=== PATIENT | female | born 1930 | race Caucasian/White ===

== ENCOUNTER 2016-09-15 00:17 | Emergency (ER) | payer MEDICARE, OTHER ==
--- NOTE | ~2016-09-15 | ER ---
PATIENT'S NAME: CORDELL SONG [facility] AGE: 86 Y [address] ROOM: [place] [address] LOCATION: [facility] ADMIT DATE: 09/15/2016 ER/Outpatient Report DISCHARGE DATE: 09/15/2016 FAMILY PHYSICIAN: Shira Dillard MD ATTENDING PHYSICIAN: Alexi Roy Admission date and time documented in medical record. I saw the patient at 0030 hours. CHIEF COMPLAINT: Shortness of breath, wheezing, cough, fatigue. HISTORY OF PRESENT ILLNESS: The patient is an 86-year-old female, brought to the emergency room by private vehicle for evaluation. She started having cough and some wheezing . She was started on a Z-Edil on Friday. It seems to be getting worse. She has been using albuterol nebulizer treatments once a day at home. She is fatigued and nonproductive cough. No chest pain. No abdominal pain. No nausea, vomiting, diarrhea. No urinary symptomatology. No lightheadedness, dizziness, syncope, or near syncope. No fall or trauma. No headache, eyes, ears, nose, throat, neck, or spine pain. No skin eruptions or rash. Does have peripheral edema. She has had a previous CVA. No endocrine problems or psych issues. HOME MEDICATIONS: See attached medication list. ALLERGIES: SULFA. SOCIAL HISTORY: Nonsmoker, nondrinker. SIGNIFICANT PAST MEDICAL HISTORY: 1. Atherosclerotic ischemic heart disease with coronary artery disease. 2. Hypertension. 3. Dyslipidemia. 4. Atrial fibrillation. 5. Cerebrovascular accident. 6. Gout. OPERATIONS: Cholecystectomy. REVIEW OF SYSTEMS: PATIENT'S NAME: CORDELL SONG [facility] AGE: 86 Y [address] ROOM: [place] [address] LOCATION: [facility] ADMIT DATE: 09/15/2016 ER/Outpatient Report DISCHARGE DATE: 09/15/2016 FAMILY PHYSICIAN: Shira Dillard MD ATTENDING PHYSICIAN: Alexi Roy All systems reviewed by me are negative with the exception of those discussed in the history of the present illness. PHYSICAL EXAMINATION: VITAL SIGNS: Temperature 97.6 tympanic, pulse 79, respirations 24, blood pressure 155/94, O2 saturation on room air is 95%. HEAD: Normocephalic. EYES, EARS, NOSE, THROAT: Clear. Mucous membranes moist. NECK: Negative. SPINE: Negative. LUNGS: Some scattered wheezing and rhonchi. The patient is tachypneic at a rate of 24. HEART: Regular. Pulses are palpable. ABDOMEN: Large obese abdomen. Soft, nontender. Good bowel tones. No organomegaly or abnormal mass palpable. EXTREMITIES: With peripheral edema. No cyanosis. No deformity. Neurovascularly appears to be intact. SKIN: Clear. IMAGING DATA: Chest x-ray showed some cardiomegaly, but no acute infiltrate or failure pattern. We will review x-ray with the radiologist. LABORATORY DATA: Procalcitonin was less than 0.05. Lactate was 0.6. Arterial blood gases on room air showed a pH of 7.41, pCO2 of 44, pO2 of 64 with an O2 saturation of 92%. Influenza A was negative. Influenza B was negative. White count was 3800, 56 segs, 21 lymphs, 14 monos, 8 eos, 2 baso. Hemoglobin 11.1 with hematocrit 34.6 and platelet count 149,000. CRP was 0.4. ProBNP was 1872. Chemistry was normal except for an elevated BUN of 27, elevated creatinine 1.5, low GFR 33, CPK was 95. Point of care cardiac enzymes were normal. IMPRESSION: 1. Bronchitis, etiology uncertain, but most likely viral. 2. Chronic renal disease. BUN of 27, creatinine 1.5, low GFR of 33. 3. Fluid retention with proBNP of 1800. 4. Hypertension. 5. Dyslipidemia. 6. Atrial fibrillation. 7. Past history of cerebrovascular accident. 8. History of gout. 9. Atherosclerotic ischemic heart disease with coronary artery disease. PLAN: The patient was given Decadron 10 mg IM in the emergency room. The patient was given a DuoNeb, respiratory nebulizer treatment in the emergency PATIENT'S NAME: CORDELL SONG [facility] AGE: 86 Y [address] ROOM: [place], [place] [address] LOCATION: [facility] ADMIT DATE: 09/15/2016 ER/Outpatient Report DISCHARGE DATE: 09/15/2016 FAMILY PHYSICIAN: Shira Dillard MD ATTENDING PHYSICIAN: Alexi Roy department. The patient dismissed home. Observation. Activity as tolerated. Fluids, good hydration. Diet as tolerated. Continue present home medications and care. Medrol Dosepak take as directed. Albuterol nebulizer treatments at home 4 times a day and as needed. Finish out the Z-Edil. Follow up with personal physician in 7-10 days or sooner if needed. Discussion ensued with the patient and her family in regard to my findings and recommendations, they understand. MD GENE CORDERO/modl /[id number] d: 09/15/16251 t: 09/15/161811, OUTPATIENT REPORT
[2016-09-15 01:09] LABS: BASOPHIL # 0.1 K/uL (0.0-0.2); BASOPHIL % 1.6 %; EOSINOPHIL # 0.3 K/uL (0.0-0.5); EOSINOPHIL % 7.9 %; HEMATOCRIT 34.6 % (30.0-46.0); HEMOGLOBIN 11.1 g/dL (10.0-15.0); IMMATURE GRANULOCYTE % 0.3 %; LYMPHOCYTE # 0.8 K/uL (0.8-4.0); LYMPHOCYTE % 20.8 %; MCH 32.6 pg (27.0-34.0); MCHC 32.1 gm/dL (32.0-36.5); MCV 101.5 fl (83.0-98.0); MONOCYTE # 0.5 K/uL (0.0-1.0); MONOCYTE % 13.9 %; MPV 10.6 fl (9.4-12.4); NEUTROPHIL # (ANC) 2.1 K/uL (1.8-7.8); NEUTROPHIL % 55.5 %; NRBC % 0 /100WBC (0-0.00); PLATELET COUNT 149 K/uL (150-450); RBC 3.41 M/uL (3.00-5.00); RDW-CV 13.6 % (11.9-14.6); WBC 3.8 K/uL (4.0-11.0)
[2016-09-15 01:25] LABS: BICARBONATE 27.9 mmol/L (18.0-23.0); LACTATE 0.6 mEq/L (0.50-1.60); PCO2 44 mmHg (35-45); PO2 64 mmHg (80-90)
[2016-09-15 01:31] LABS: ALBUMIN 3.5 gm/dL (3.5-5.0); ALK PHOS 106 IU/L (33-138); ALT 23 IU/L (12-78); ANION GAP 13.1 (10.0-19.0); AST 25 IU/L (10-40); BLOOD UREA NITROGEN 27 mg/dL (6-24); CALCIUM 8.8 mg/dL (8.5-10.5); CHLORIDE 105 mMol/L (96-110); CO2 25 mMol/L (22-32); CPK 95 IU/L (21-215); CREATININE 1.5 mg/dL (0.5-1.1); ESTIMATED GFR (MDRD EQUATION) 33; POTASSIUM 4.1 mMol/L (3.7-5.1); SODIUM 139 mMol/L (135-145); TOTAL BILIRUBIN 0.7 mg/dL (0.0-1.5); TOTAL PROTEIN 8.2 g/dL (6.0-8.4)
== END 2016-09-15 02:35 | disposition disaster alternative care site (69) ==
LOC: GMED 00:17
PROVIDERS: Emergency Medicine
DX: J40 Bronchitis, not specified as acute or chronic (principal); I12.9 Hypertensive chronic kidney disease with stage 1 through stage 4 chronic kidney disease, or unspecified chronic kidney disease; N18.9 Chronic kidney disease, unspecified; E78.5 Hyperlipidemia, unspecified; I48.91 Unspecified atrial fibrillation; I25.10 Atherosclerotic heart disease of native coronary artery without angina pectoris; Z88.2 Allergy status to sulfonamides
CPT/HCPCS: J1100